=== PATIENT | male | born 1990 | race Caucasian/White ===

== ENCOUNTER 2022-10-07 13:58 | Emergency (ER) | payer MEDICAID, SELFPAY ==
[2022-10-07 14:06] VITALS: BP 178/100; PULSE 102; RESP 22; TEMP 36.7; O2SAT 96; BMI 90.8
--- NOTE | 2022-10-07 14:19 | PC.NURSE ---
imaging complete 1 month ago for initial injury to right ankle at [facility]. Pt states pain is back and increases with weight to right ankle area, no bruising observed and pt denies new injury
--- NOTE | 2022-10-07 14:22 | ED.GENADUL1 ---
HPI - General Adult General Chief complaint: Extremity Injury, Lower Stated complaint: LOWER EXTREMITY PAIN, RIGHT ANKLE Time Seen by Provider: 10/07/22 14:13 Source: patient Mode of arrival: Wheelchair History of Present Illness HPI narrative: The patient is coming to us with a right ankle pain that got exacerbated over the last few days although he was evaluated for that similar ankle pain couple weeks ago with another facility. He mentioned that he had no new injury but he noted that the pain came back after he was worried it got treated with a steroid injection and patient could not follow-up with podiatry as outpatient because of insurance problem not covering his referral to [facility] . Related Data Previous Rx's Medication Instructions Recorded acetaminophen 650 mg 650 mg PO Q8H PRN pain #20 tabs 10/07/22 tablet,extended release (Tylenol 8 Hour) prednisone 50 mg tablet 50 mg PO DAILY 5 days #5 tabs 10/07/22 Allergies Allergy/AdvReac Type Severity Reaction Status Date / Time metformin Allergy Severe Verified 10/07/22 14:12 Review of Systems ROS Status of ROS 10 or more systems reviewed and unremarkable except as noted in history and below Exam Narrative Exam Narrative: Nurses notes and vital signs reviewed and patient is not hypoxic. General: Well-appearing and in no apparent distress. Skin: Warm, dry, no pallor noted. No rash. Head: Normocephalic, atraumatic. Neck: Supple, non-tender. Eye: Pupils are equal, round and EOMI. No scleral icterus. Ears, Nose, Mouth, and Throat: TM are clear, no nasal mucosal hypertrophy. Oral mucosa is moist, no posterior oropharynx erythema, uvula is mid-line Cardiovascular: Regular Rate and Rhythm without murmur, gallop or rub. Respiratory: No accessory muscle use or respiratory distress. Lungs are clear to auscultation, no wheezing, rales or rhonchi Chest Wall: no tenderness Back: No midline thoracic or lumbar vertebral tenderness. No CVA tenderness Musculoskeletal: normal ROM, no calf or popliteal tenderness, there is subjective lateral malleolus tenderness no swelling GI: Abdomen is soft, non-distended. Normal bowel sounds. No masses appreciated. No tenderness to palpation. No rebound, guarding, or rigidity noted. Neurological: A&O x4. No cranial nerve dysfunction observed. No truncal ataxia. Moves all extremities. Sensation intact. Psychiatric: Cooperative and interactive. Normal mood and affect. Constitutional Vital Signs, click to edit/add: Last Vital Signs Temp 98.1 F 10/07/22 14:06 Pulse 102 H 10/07/22 14:06 Resp 22 10/07/22 14:06 BP 178/100 H 10/07/22 14:06 Pulse Ox 96 10/07/22 14:06 O2 Del Method Room Air 10/07/22 14:06 Course Vital Signs Vital signs: Vital Signs Temperature 98.1 F 10/07/22 14:06 Pulse Rate 102 H 10/07/22 14:06 Respiratory Rate 22 10/07/22 14:06 Blood Pressure 178/100 H 10/07/22 14:06 Pulse Oximetry 96 10/07/22 14:06 Oxygen Delivery Method Room Air 10/07/22 14:06 Temperature 98.1 F 10/07/22 14:06 Pulse Rate 102 H 10/07/22 14:06 Respiratory Rate 22 10/07/22 14:06 Blood Pressure 178/100 H 10/07/22 14:06 Pulse Oximetry 96 10/07/22 14:06 Oxygen Delivery Method Room Air 10/07/22 14:06 Medical Decision Making MDM Narrative Medical decision making narrative: No new injury the patient examination shows no tenderness on palpation of the bony prominences The patient was provided with a new referral to podiatry Prednisone as well as Tylenol for the next 5 days and rest and elevation The patient is to follow up with primary care physician in next 2-3 days or to return to the emergency department should any of the signs or symptoms worsen or new symptoms develop. The patient agrees with the following Diagnosis and Treatment plan and the patient will be discharged home. Discharge Plan Discharge Chief Complaint: Extremity Injury, Lower Clinical Impression: Acute ankle pain Patient Disposition: Home, Self-Care Time of Disposition Decision: 14:28 Condition: Good Prescriptions / Home Meds: New acetaminophen [Tylenol 8 Hour] 650 mg tablet extended release 650 mg PO Q8H PRN (Reason: pain) Qty: 20 0RF prednisone 50 mg tablet 50 mg PO DAILY 5 Days Qty: 5 0RF Instructions: Arthralgia (ED) Stand Alone Forms: Portal Instructions Referrals: Physician,Non-Staff, [Primary Care Provider] - 1 week David Del Cid DPM [Physician] - 1 week
[2022-10-07] MEDS: KETOROLAC TROMETHAMINE 60 MG/2 ML VIAL IM (14:38)
== END 2022-10-07 14:51 | disposition home or self-care (01) ==
PROVIDERS: Emergency Provider Emergency Medicine
DX: M25.571 Pain in right ankle and joints of right foot (principal)
CPT/HCPCS: 99284

== ENCOUNTER 2022-10-21 14:43 | Outpatient (OUT) | payer OTHER, SELFPAY ==
--- NOTE | 2022-10-21 | XR_ITS ---
The [address] [address] Patient Name: ANIYA SMITH MRN: [id number] date: 1990 Sex: M Assigned Patient Location: RAD Current Patient Location: RAD Accession/Order Number: [id number] Exam Date: 10/21/2022 15:10 Report Date: 10/21/2022 16:54 At the request of: CHRISTIE VITALE Procedure: XR ankle RT min 3V PROCEDURE: XR ankle RT min 3V COMPARISON: None. HISTORY: RIGHT ANKLE INJURY FINDINGS: BONES:No acute fracture or dislocation. Moderate enthesopathic spurring of the calcaneus at the Achilles tendon and plantar aponeurosis SOFT TISSUES:Moderate diffuse soft tissue swelling EFFUSION:None visible. OTHER: Negative. XR/XR ankle RT min 3V IMPRESSION: Diffuse soft tissue swelling, no acute fracture Electronically authenticated by: JENNIFER MERRILL Date: 10/21/2022 16:54
== END 2022-10-21 14:44 | disposition home or self-care (01) ==
LOC: RAD 14:44
PROVIDERS: Visit Provider Podiatrist Foot & Ankle Surgery
DX: S99.911A Unspecified injury of right ankle, initial encounter (principal)
CPT/HCPCS: 73610